=== PATIENT | male | born 1965 | race Caucasian/White ===

== ENCOUNTER 2018-11-05 23:40 | Emergency (ER) | payer MEDICAID ==
[~2018-11-05] VITALS: Ht 190.5 cm; Wt 113.4 kg
[2018-11-05 23:57] VITALS: BP 193/101
== END 2018-11-06 07:17 | disposition left against medical advice (07) ==
LOC: EDUNIT# 23:40 → EDBD 23:40 → ER 23:49
DX: F10.10 Alcohol abuse, uncomplicated (principal); Z53.21 Procedure and treatment not carried out due to patient leaving prior to being seen by health care provider
CPT/HCPCS: 93005